=== PATIENT | female | born 2005 | race Caucasian/White ===

== ENCOUNTER 2025-11-30 09:32 | Outpatient (CLI) | payer BC, SELFPAY | END 2025-11-30 09:33 | disposition home or self-care (01) | LOC: FBOREF 09:34 | PROVIDERS: PCP Family Medicine; Visit Provider Family Medicine | DX: M25.50 Pain in unspecified joint (principal); Z11.8 Encounter for screening for other infectious and parasitic diseases | CPT/HCPCS: 86618 ==